=== PATIENT | male | born 1975 | race Caucasian/White ===

== ENCOUNTER 2020-07-10 15:19 | Outpatient (REF) | payer OTHER, SELFPAY | END 2020-07-10 15:20 | disposition home or self-care (01) | LOC: HO.LAB 15:19 | PROVIDERS: PCP Nurse Practitioner; Visit Provider Internal Medicine | DX: Z20.828 Contact with and (suspected) exposure to other viral communicable diseases (principal) | CPT/HCPCS: C9803; U0003 ==

== ENCOUNTER 2022-05-04 15:04 | Emergency (ER) | payer OTHER, SELFPAY ==
--- NOTE | ~2022-05-04 | XR_ITS ---
EXAMINATION: XR CHEST CLINICAL INFORMATION: Chest pain COMPARISON: None TECHNIQUE: Frontal view of the chest was obtained. FINDINGS: Minimal linear subsegmental atelectasis in the left lower lung. No airspace consolidation, pleural effusion, or pneumothorax. Mild tortuosity descending thoracic aorta. Otherwise, normal cardiomediastinal silhouette. No evidence of pulmonary edema. No acute osseous injury. XR/XR chest 1V IMPRESSION: No acute pulmonary process.
--- NOTE | 2022-05-04 15:29 | ECG_ITS ---
Test Reason : CP Blood Pressure : / mmHG Vent. Rate : 061 BPM Atrial Rate : 061 BPM P-R Int : 196 ms QRS Dur : 088 ms QT Int : 404 ms P-R-T Axes : 013 -03 019 degrees QTc Int : 406 ms Normal sinus rhythm Minimal voltage criteria for LVH, may be normal variant ( [place] product ) ST & T wave abnormality, consider lateral ischemia Abnormal ECG No previous ECGs available Referred By: Generic ED Physician Electronically Signed By:JUNO CHRISTIAN
[2022-05-04 15:49] VITALS: BP 121/86; PULSE 57; RESP 18; TEMP 36.5; O2SAT 96; BMI 37.1
[2022-05-04 15:54] LABS: MANUAL DIFF FLAG NO
[2022-05-04 15:56] LABS: Basophils Percent Auto 0.4 % (0-2); Eosinophils Absolute Auto 0.4 X10*3/uL (0.0-0.4); Eosinophils Percent Auto 5.1 % (0-4); Hematocrit 41.4 % (42.0-52.0); Hemoglobin 14.2 g/dl (14.0-18.0); Imm Gran Abs Auto 0.02 X10*3/uL (0.00-0.03); Imm Gran Pct Auto 0.3 % (0.0-0.4); Lymphocytes Absolute Auto 1.9 X10*3/uL (1.2-4.9); Lymphocytes Percent Auto 24.7 % (20-40); Mean Corpuscular HGB Conc 34.3 g/dl (31.0-36.0); Mean Corpuscular Hemoglobin 28.7 pg (27.0-33.0); Mean Corpuscular Volume 83.6 fL (80.0-98.0); Monocytes Absolute Auto 0.6 X10*3/uL (0.1-1.2); Monocytes Percent Auto 7.8 % (2-11); Neutrophils Absolute Auto 4.9 x10*3/uL (2.0-8.3); Neutrophils Percent Auto 61.7 % (45-73); Platelet Count 216 X10*3/uL (160-400); Red Blood Count 4.95 X10*6/uL (4.60-5.80); White Blood Count 7.9 X10*3/uL (4.8-10.8)
[2022-05-04 16:11] LABS: Anion Gap 16 (12-20); Blood Urea Nitrogen 11 mg/dL (9-16); Carbon Dioxide 27 mmol/L (22-29); Chloride 101 mmol/L (96-108); Estimated Glomerular Filt Rate > 60; Glucose Random 90 mg/dL (60-115); Potassium 3.5 mmol/L (3.3-5.1); Sodium 140 mmol/L (135-145)
[2022-05-04 16:19] LABS: Troponin-I High Sensitivity 3.6 ng/L (<3.5-35.0)
== END 2022-05-04 21:34 | disposition left against medical advice (07) ==
PROVIDERS: Emergency Provider Emergency Medicine; PCP Internal Medicine
DX: R07.89 Other chest pain (principal); Z79.899 Other long term (current) drug therapy
CPT/HCPCS: 36415; 71045; 80048; 84484; 85025; 93005; 99283

== ENCOUNTER 2022-05-06 15:38 | Emergency (ER) | payer OTHER, SELFPAY ==
--- NOTE | ~2022-05-06 | XR_ITS ---
EXAMINATION: XR CHEST CLINICAL INFORMATION: Chest pain COMPARISON: Previous chest x-ray 05/04/2022 TECHNIQUE: Frontal view of the chest was obtained. FINDINGS: No significant abnormality is noted involving the heart, lungs, mediastinum, bony thorax or soft tissues. XR/XR chest 1V IMPRESSION: Unremarkable examination.
[2022-05-06 16:05] VITALS: BP 131/85; PULSE 69; RESP 18; TEMP 36.9; O2SAT 98; BMI 43.5
--- NOTE | 2022-05-06 16:07 | ECG_ITS ---
Test Reason : CHEST PAIN Blood Pressure : / mmHG Vent. Rate : 070 BPM Atrial Rate : 070 BPM P-R Int : 206 ms QRS Dur : 088 ms QT Int : 394 ms P-R-T Axes : 036 000 173 degrees QTc Int : 425 ms Normal sinus rhythm Minimal voltage criteria for LVH, may be normal variant ( [place] product ) ST & T wave abnormality, consider lateral ischemia Abnormal ECG When compared with ECG of 04-MAY-2022 15:38, No significant change was found Referred By: Generic ED Physician Electronically Signed By:JUNO CHRISTIAN
[2022-05-06 16:25] LABS: MANUAL DIFF FLAG NO
[2022-05-06 16:28] LABS: Basophils Percent Auto 0.5 % (0-2); Eosinophils Absolute Auto 0.4 X10*3/uL (0.0-0.4); Eosinophils Percent Auto 5.9 % (0-4); Hematocrit 39.9 % (42.0-52.0); Hemoglobin 13.6 g/dl (14.0-18.0); Imm Gran Abs Auto 0.03 X10*3/uL (0.00-0.03); Imm Gran Pct Auto 0.5 % (0.0-0.4); Lymphocytes Absolute Auto 1.7 X10*3/uL (1.2-4.9); Lymphocytes Percent Auto 27.3 % (20-40); Mean Corpuscular HGB Conc 34.1 g/dl (31.0-36.0); Mean Corpuscular Hemoglobin 28.5 pg (27.0-33.0); Mean Corpuscular Volume 83.6 fL (80.0-98.0); Mean Platelet Volume 10.8 fL (9.4-12.4); Monocytes Absolute Auto 0.4 X10*3/uL (0.1-1.2); Monocytes Percent Auto 6.8 % (2-11); Neutrophils Absolute Auto 3.7 x10*3/uL (2.0-8.3); Platelet Count 205 X10*3/uL (160-400); Red Blood Count 4.77 X10*6/uL (4.60-5.80); White Blood Count 6.2 X10*3/uL (4.8-10.8)
[2022-05-06 16:42] LABS: Anion Gap 16 (12-20); Blood Urea Nitrogen 11 mg/dL (9-16); Calcium 8.8 mg/dL (8.4-10.2); Carbon Dioxide 25 mmol/L (22-29); Chloride 100 mmol/L (96-108); Creatinine Clr Calc Pharmacy 137.2; Estimated Glomerular Filt Rate > 60; Glucose Random 138 mg/dL (60-115); Potassium 3.5 mmol/L (3.3-5.1); Sodium 137 mmol/L (135-145)
[2022-05-06 17:36] LABS: Troponin-I High Sensitivity < 3.5 ng/L (<3.5-35.0)
[2022-05-06 20:08] LABS: COVID-19 Test Negative (Negative)
[2022-05-06 22:22] VITALS: BP 142/85; PULSE 54; RESP 18; TEMP 36.8; O2SAT 94
--- NOTE | 2022-05-07 00:20 | ED_ITS ---
HPI - Chest Pain General Chief Complaint: Chest Pain Stated Complaint: sent down by primary for ab ekg? Time Seen by Provider: 05/06/22 16:09 Source: patient and family () Mode of arrival: ambulatory Limitations: no limitations History of Present Illness HPI narrative: 46-year-old male sent by his PCP for concern of abnormal EKG and chest pain. Patient been complaining of chest pain for 1 week, pain is on and off for 1 week, localized to the epigastric and the midchest feel like burning sensation radiate to the back, pain mostly aggravated by food, exertion does not affect the pain, no alleviating factors, patient with history of hypertension, nonsmoker, physical activity at work every day, patient was evaluated by fiberglass autobody repairer few months ago and had a negative stress test as reported by the patient. Patient was seen by his PCP today and there is a concern of abnormal EKG. Related Data Previous Rx's Medication Instructions Recorded omeprazole 40 mg capsule,delayed 40 mg PO DAILY #30 caps 05/07/22 release Allergies Allergy/AdvReac Type Severity Reaction Status Date / Time No Known Allergies Allergy Unverified 04/26/20 18:56 Review of Systems Review of Systems: All other systems are reviewed and are negative Constitutional: Reports as per HPI and Reports no additional constitutional complaints Eyes: Reports as per HPI and Reports no additional eye complaints Reports system reviewed and no additional complaints, except as documented Cardiovascular: Reports as per HPI and Reports no additional cardiovascular complaints Respiratory: Reports as per HPI and Reports no additional respiratory complaints Gastrointestinal: Reports as per HPI and Reports no additional gastrointestinal complaints Genitourinary: Reports no additional female genitourinary complaints Musculoskeletal: Reports no additional musculoskeletal complaints Skin/Breast: Reports system reviewed and no additional complaints, except as docu Psychiatric: Reports no additional psychiatric complaints Endocrine: Reports no additional endocrine complaints Hematologic/Lymphatic: Reports no additional hematologic/lymphatic complaints Allergic/Immunologic: Reports no additional allergic/immunologic complaints Reports system reviewed and no additional complaints, except as documented and Reports Abnormal speech present [facility] Social History Social History Advance Directives: No Advance Directives Information Provided: No Physical Exam Vital Signs: Vital Signs: Last Vital Signs Temp 98.3 F 05/06/22 22:22 Pulse 54 05/06/22 22:22 Resp 18 05/06/22 22:22 BP 142/85 H 05/06/22 22:22 Pulse Ox 94 05/06/22 22:22 O2 Del Method 05/06/22 22:22 BMI result Body Mass Index 43.5 Vital signs have been reviewed as appeared to be correct. Blood pressure normal. Heart rate normal. Respiration rate normal. Temperature normal. Oxygen saturation normal. Appearance: Alert. Oriented X3. No acute distress. Head: Normal external exam. Normocephalic. Atraumatic. No Crowe signs noted. No raccoon eyes noted Eyes: PERRLA. EOMI. Conjunctiva and sclera normal. Eyelids normal. ENT: TM's Normal. Pharynx normal. Uvula midline. Moist mucous membranes. No trismus noted. No drooling noted. No muffled voice noted. Neck: Normal inspection. Neck supple. FROM. No adenopathy. Thyroid Normal. No meningeal signs. No neck mass noted. CVS: Normal heart rate and rhythm. Heart sound normal. No murmurs noted. Pulses normal throughout. Respiratory: No respiratory distress. Painless inspiration. Breath sounds normal. No wheezes/rales/rhonchi noted. Chest nontender. No accessory muscle usage noted or decreased air movement noted. Abdomen: Soft and nontender. Bowel sounds normal in all 4 quadrants. No distention noted. No organomegaly noted. No visible injury noted. Back: No CVA tenderness. Full range of motion noted. Skin: Skin warm and dry. Normal skin color. Normal skin turgor. No rashes/lesions/lacerations noted. Extremities: No lower extremity edema. Extremities exhibit normal range of motion. Extremities nontender. Neuro: Oriented X 3. Cranial nerve exam: II-XII are grossly intact No motor deficit. No sensory deficit. Reflexes normal. Course Course Course Narrative: 46-year-old male HEART SCORE is 2 with low risk for coronary artery disease specially patient had a recent stress test done 6 months ago and was evaluated by fiberglass autobody repairer with negative workup, history and physical exam suggesting more or less esophegitis versus gastritis. 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 Result diagrams: 05/06/22 16:20 05/06/22 16:20 Labs: Lab Results 05/06/22 05/06/22 05/06/22 Range/Units 16:20 16:20 16:20 WBC 6.2 (4.8-10.8) X10*3/uL RBC 4.77 (4.60-5.80) X10*6/uL Hgb 13.6 L (14.0-18.0) g/dl Hct 39.9 L (42.0-52.0) % MCV 83.6 (80.0-98.0) fL MCH 28.5 (27.0-33.0) pg MCHC 34.1 (31.0-36.0) g/dl RDW 13.0 (11.0-16.0) % Plt Count 205 (160-400) X10*3/uL MPV 10.8 (9.4-12.4) fL Immature Gran % (Auto) 0.5 H (0.0-0.4) % Neut % (Auto) 59.0 (45-73) % Lymph % (Auto) 27.3 (20-40) % Mcdonough % (Auto) 6.8 (2-11) % Eos % (Auto) 5.9 H (0-4) % Baso % (Auto) 0.5 (0-2) % Lymph # (Auto) 1.7 (1.2-4.9) X10*3/uL Mcdonough # (Auto) 0.4 (0.1-1.2) X10*3/uL Eos # (Auto) 0.4 (0.0-0.4) X10*3/uL Baso # (Auto) 0.0 (0.0-0.2) X10*3/uL Abs Immat Gran (auto) 0.03 (0.00-0.03) X10*3/uL Absolute Neuts (auto) 3.7 (2.0-8.3) x10*3/uL Absolute Nucleated RBC 0.000 (0.0-0.012) X10*3/uL Nucleated RBC % (auto) 0.0 (0.0-0.2) /100WBC Sodium 137 (135-145) mmol/L Potassium 3.5 (3.3-5.1) mmol/L Chloride 100 (96-108) mmol/L Carbon Dioxide 25 (22-29) mmol/L Anion Gap 16 (12-20) BUN 11 (9-16) mg/dL Creatinine 0.83 (0.5-1.4) mg/dL Estim Creat Clear Calc 137.2 Estimated GFR > 60 Random Glucose 138 H D (60-115) mg/dL Calcium 8.8 (8.4-10.2) mg/dL Troponin I High Sens (<3.5-35.0) ng/L COVID-19 (BILLY) Negative (Negative) COVID-19 Clin Com See Note 05/06/22 Range/Units 16:20 WBC (4.8-10.8) X10*3/uL RBC (4.60-5.80) X10*6/uL Hgb (14.0-18.0) g/dl Hct (42.0-52.0) % MCV (80.0-98.0) fL MCH (27.0-33.0) pg MCHC (31.0-36.0) g/dl RDW (11.0-16.0) % Plt Count (160-400) X10*3/uL MPV (9.4-12.4) fL Immature Gran % (Auto) (0.0-0.4) % Neut % (Auto) (45-73) % Lymph % (Auto) (20-40) % Mcdonough % (Auto) (2-11) % Eos % (Auto) (0-4) % Baso % (Auto) (0-2) % Lymph # (Auto) (1.2-4.9) X10*3/uL Mcdonough # (Auto) (0.1-1.2) X10*3/uL Eos # (Auto) (0.0-0.4) X10*3/uL Baso # (Auto) (0.0-0.2) X10*3/uL Abs Immat Gran (auto) (0.00-0.03) X10*3/uL Absolute Neuts (auto) (2.0-8.3) x10*3/uL Absolute Nucleated RBC (0.0-0.012) X10*3/uL Nucleated RBC % (auto) (0.0-0.2) /100WBC Sodium (135-145) mmol/L Potassium (3.3-5.1) mmol/L Chloride (96-108) mmol/L Carbon Dioxide (22-29) mmol/L Anion Gap (12-20) BUN (9-16) mg/dL Creatinine (0.5-1.4) mg/dL Estim Creat Clear Calc Estimated GFR Random Glucose (60-115) mg/dL Calcium (8.4-10.2) mg/dL Troponin I High Sens < 3.5 (<3.5-35.0) ng/L COVID-19 (BILLY) (Negative) COVID-19 Clin Com Imaging Data Chest x-ray: Attestation: I personally reviewed and interpreted this imaging study as follows: Radiologist's impression: Bilateral renal stones. No hydronephrosis or ureteral dilatation or ureteral stone. IUD in the uterus in satisfactory position. Postsurgical changes to the distal colon or upper rectum. No evidence of diverticulitis. ECG Data ECG #1: Attestation: I personally reviewed and interpreted this ECG as follows: Interpretation: Normal sinus rhythm at 70 beats per minute, LVH, diffuse T-wave inversion in V4 to V6. Unchanged from old EKG. Discharge Plan Discharge Clinical Impression: Chest pain Patient Disposition: Home, Self-Care Instructions: Chest Pain (ED) Prescriptions: New omeprazole 40 mg capsule,delayed release(DR/EC) 40 mg PO DAILY Qty: 30 0RF Referrals: Ryne Rodríguez MD [Primary Care Provider] - Michelle Lewis MD [Physician] - Erasmo Rivera MD [Physician] -
[2022-05-07 00:33] VITALS: BP 138/83; PULSE 58; RESP 19; O2SAT 97
--- NOTE | 2022-05-07 01:15 | PC.NURSE ---
Pt a&o, no sob or chest pain. Pt denies any distress. Reviewed discharge instruction. Pt verbalized understanding.
== END 2022-05-07 01:16 | disposition home or self-care (01) ==
PROVIDERS: Emergency Provider Emergency Medicine; PCP Internal Medicine
DX: R07.89 Other chest pain (principal); Z20.822 Contact with and (suspected) exposure to COVID-19; Z79.899 Other long term (current) drug therapy
CPT/HCPCS: 36415; 71045; 80048; 84484; 85025; 87635; 93005; 99283; 99284

== ENCOUNTER → 2023-03-31 15:31 | Outpatient (BNVA) | payer OTHER, SELFPAY | PROVIDERS: Visit Provider Physician Assistant Surgical ==

== ENCOUNTER 2023-05-06 14:50 | Outpatient (AMB) | payer OTHER, SELFPAY ==
--- NOTE | 2023-05-06 14:56 | MHC.OFFVISWM ---
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 His goal is to improve his health and obesity related issues including sleep apnea and hypertension.? He reports first being concerned about his weight in his 20 since started gaining weight after college.? He has tried multiple methods of weight loss including fad diets and portion control without permanent results. 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 The patient believes that this is the heaviest of his adult life at 244.2 lb, a year ago when he had atypical chest pain that may have been secondary to GERD, he was evaluated in the emergency room and found to be 270 lb. The patient reports worsening GERD over the past 2 years that he has been self medicating with Tums/OTC medications. He denies dysphagia, odynophagia, hematemesis. He has never had an upper endoscopy. PMH: PAUL/CPAP (complaint but it doesn't see to be working re: sleepines & restorative sleep) HTN PSH: denied He wakes at:???0500? bed at: 10-11pm & has difficulty falling asleep/stayig asleep Breakfast: 0530, coffee with cream & sugar, bagel Snack t work around 0930: donut & coffee with cream & sugar Lunch: Beans & rice, some meat, few vegs Dinner: beans, rice, pasta, meat, few vegs After dinner: sweets, sarah cream, cake Other snacks: Chips, sweets Liquids: Soda, occasionally juice Alcohol intake: rare? nicotine: denied??? marijuana:??denied? drugs:?denied??? caffeine: 3-4 servings/day Exercise: none Colonoscopy: past due at 45y YOSSI: 0 ESS: 20 GERD: 13 QOL: 113 The patient is advised that vitamin or protein supplement samples maybe provided by Callie Storm RD to facilitate care options. [facility] Surgical History History of lateral meniscus repair of right knee Review of Systems Const All systems reviewed & are unremarkable except as noted in HPI and below Reports as per HPI Physical Exam Vital Signs: Last Vital Signs Temp 97.3 F 05/06/23 14:57 Pulse 83 05/06/23 14:57 BP 141/84 H 05/06/23 14:57 Pulse Ox 95 05/06/23 14:57 Oxygen Delivery Method Room Air 05/06/23 14:57 BMI result Body Mass Index 40.5 The patient is non-toxic & in good spirits NC/AT, PERRLA, EOMI Mood, affect & judgment all appear appropriate Sclera anicteric conjunctiva pink and moist Oropharynx is clear with no aphthous ulcers, Mallampati class 4, mucous membranes moist Neck is plethoric but supple with no masses, adenopathy or bruits Thyroid is nontender and free of dominant masses Heart is regular, normal S1-S2 no rubs or murmurs Lungs are clear and equal anteriorly with no audible wheezing, rubs or dullness to percussion Abdomen is obese with no demonstrable hernias. No HSM, rebound, rigidity, guarding, masses or bruits are present. Rectal exam is deferred Skin has good turgor and is free of rashes Extremities free of cyanosis clubbing edema Assessment & Plan Assessment & Plan (1) BMI 40.0-44.9, adult: Code(s): Z68.41 - Body mass index [BMI] 40.0-44.9, adult (2) HTN (hypertension): Code(s): I10 - Essential (primary) hypertension (3) PAUL on CPAP: Code(s): G47.33 - Obstructive sleep apnea (adult) (pediatric) (4) Non-restorative sleep: Code(s): G47.8 - Other sleep disorders (5) Knee pain, right: Code(s): M25.561 - Pain in right knee (6) Lumbar back pain: Code(s): M54.50 - Low back pain, unspecified Plan Via product safety tester, we had a discussion regarding diet, physiology and normal anatomy and options including medical management, and bariatric surgery options including laparoscopic sleeve gastrectomy or laparoscopic gastric bypass. The importance of following a healthy diet that is high in protein and low in carbohydrates and fats for long-term success was reviewed with the patient and he seemed understand and would like to proceed. I spent 65 minutes answering questions/counseling the patient regarding options including medical weight loss and bariatric surgery. We briefly reviewed the inherent risks to bariatric surgery which include weight regain, bleeding, infection and DVT/PE that can be fatal. The patient seems to understand the importance of being engaged in his health and would like to proceed. See orders. Patient will follow-up with me for a 45 minute visit with interpretive services at the end of May. Preop Bariatric Plan 1.?? Nutritional counseling:?Be sure to careful read the number of scoops per shake if you are using powdered mix.? Substitute Celebrate Rebuild Protein Shakes & Bars for Zone Perfect bar in the printout. Start with? Celebrate ReBuild Protein shakes First shake (1 scoops in 8 oz unsweetened almond milk) at 7-9am Second shake, (1 scoop in 8 oz unsweetened almond milk) at Noon-2pm 1 protein bar Celebrate ReBuild bars at 3-4pm. Dinner at 4pm (10 forks of protein and 10 forks of salad/vegetables). Meal to include lean meat (beef, fish, pork, turkey, chicken), cooked vegetables or a salad with olive oil and/or fruits (berries, pears, apples, kiwi) 2.?? If you are hungry after dinner, eat another Celebrate Protein Bar 3.?? Avoid breads, potatoes, starches, rice, pasta, donuts, bagels. Sweets & desserts.? The sooner you decrease carbohydrates & excess fats, the sooner you will reach your goal. 4.?? You must closely monitor your blood pressure at daily. Stop adding sugar & creamer to you coffee After dinner snacking should be Celebrate ReBuild protein bar if needed. Try to drink 64 oz of water daily and avoid soda and juices. ?2. Each shake would be drunk slowly, like coffee in a period of 2 hours. ?3. Cut each bar in 4 pieces and eat each piece in 30 min to make each bar last 2 hours. ?4. I emphasized the importance of measuring accurately the food portion and measure it carefully when serving the food on the plate ?5. The meal portions include 10 full-size forks of meat and 10 full-size forks of salad. You should always eat the meat portion but you can skip the forks of salad/vegetables and replace with a fruit if you like. The less you do it the better weight loss will be. ?6. One full-size fork is what can be scooped on the fork without falling aside and not what can be bit with the fork. Use regular forks like those you find in a typical restaurant. ?7.? Please send me weight measurements as soon as possible and then once a week. Always include your diet and exercise plan. Alternatively come weekly at the office for weight checks and send me the measurements. ?8. Exercise counseling:? Begin by watching a stretching for beginner?s video.? Start slowly and begin to stretch your muscles.? You should do this before and after each exercise session to prevent injury.? Please use the exercise equipment at your building. Start elliptical with a resistance of 2. Increase resistance by 1 every 3 min to your most comfortable resistance with a max resistance of 8.? Reduce the resistance by 1 every 3 minutes back down to 2 and repeat cycles for 300 calories. Alternatively, start treadmill with a speed of 3.0 and incline of 0, increasing incline by 1 every 3 minutes to the highest comfortable level (max 6 for now) then decrease in the same fashion.? Repeat process to a goal of 300 calories.? Goal of 2000 calories burned or more weekly.? You may also consider use of the stationary bike.? The easiest would be to choose the fat-burn or interval training program on the machine and do this until you reach the 300 calorie goal.? Alternatively, you can manually adjust the resistance in a similar fashion as mentioned above, (resistance of 2-8 with a goal speed of 12 mph).?Tracking calories is essential. 9. Alternatively, start walking outside daily, tracking calories with a goal of 300 calories per day, daily. If [id number] is needed, you can start there, but the goal is DAILY. You can download the fausto?Refresh.io?which can track your time, distance and calories while walking outside.? You press start in the fausto when you start and then stop when you are finished. ? 10.? It is important to avoid and for at least 18 months postoperatively and it has been discussed at the information session 11. Please get labs, EKG and chest X-Ray within 1 week. 12. Discussed and answered all questions regarding?obtained consent to participate in the [facility]?Registry. 13. Please follow the diet plan exactly, without any change.? If you do not like something about the plan or you feel hungry, you need to communicate with me so I can help you revise the plan.? You should not change the plan yourself. 14. Goal is to lose 1.5-2.0 lbs/week 15. Goal is to lose 10% of your weight before surgery, which is about 25 lbs. Ultimate weight goal: 220 lbs before surgery.? Remember that you may need to lose more weight to qualify for surgery if your abdominal ultrasound shows your liver or spleen are enlarged or if your upper GI shows a hiatal hernia. IF YOU EXPERIENCE PAIN, SEVERE SHORTNESS OF BREATH, DIZZINESS OR LIGHTHEADEDNESS, OR SIGNIFICANT CONSTIPATION OR DIARRHEA, (DIARRRHEA CAN OCCUR FROM SOME ARTIFICIAL SWEETENERS) PLEASE NOTIFY THE OFFICE! If you have diabetes, you will need to follow your blood sugars at least twice a day (morning & evening, or as needed if you are shaky/sweaty or feel hypoglycemic).? Please discuss with Dr. Cruz.? Text Dr. Cruz at [phone] If you have hypertension/high blood pressure, you will need to monitor your blood pressure regarding adjusting medications.? Please discuss with Dr. Cruz.? We encourage patients to track calories burned while exercising as this is a more proven method verses ?steps? or ?miles walked? apps.? Patients who have dedicated exercise time at regular intervals throughout the week have greater weight loss then patients who hope that being active at work or through their day will result in weight loss.? Your body has adapted to your current life & you need to add regular exercise, just like you added a healthier diet for your health goals. Resistance training (weight lifting) is helpful to reach your goal, strengthen your bones or if your weight loss has stalled (reached a plateau) by both burning calories & adding muscle, which increases your metabolism.? Chest, back & thigh muscles can be exercised at home or at a gym.? Please discuss your goals with Dr. Cruz or a qualified parent trainer at your local gym. YouTube options: ?Sit to Be Fit, Daily Burn, Patricia, Walk away the pounds, [employer] Websites: Sit and Be Fit? https://www.sitandbefit.org/ Go For Life https://mu8tfsg.anne.nih.gov/ Orders: Orders IRON PROFILE Today G47.33 - Obstructive sleep apnea (adult) (pediatric), G47.8 - Other sleep disorders, I10 - Essential (primary) hypertension, M25.561 - Pain in right knee, M54.50 - Low back pain, unspecified, Z68.41 - Body mass index [BMI] 40.0-44.9, adult Complete Blood Count Auto Diff Today G47.33 - Obstructive sleep apnea (adult) (pediatric), G47.8 - Other sleep disorders, I10 - Essential (primary) hypertension, M25.561 - Pain in right knee, M54.50 - Low back pain, unspecified, Z68.41 - Body mass index [BMI] 40.0-44.9, adult Vitamin B12 and Folate Today G47.33 - Obstructive sleep apnea (adult) (pediatric), G47.8 - Other sleep disorders, I10 - Essential (primary) hypertension, M25.561 - Pain in right knee, M54.50 - Low back pain, unspecified, Z68.41 - Body mass index [BMI] 40.0-44.9, adult Zinc Today G47.33 - Obstructive sleep apnea (adult) (pediatric), G47.8 - Other sleep disorders, I10 - Essential (primary) hypertension, M25.561 - Pain in right knee, M54.50 - Low back pain, unspecified, Z68.41 - Body mass index [BMI] 40.0-44.9, adult Comprehensive Met. Panel Today G47.33 - Obstructive sleep apnea (adult) (pediatric), G47.8 - Other sleep disorders, I10 - Essential (primary) hypertension, M25.561 - Pain in right knee, M54.50 - Low back pain, unspecified, Z68.41 - Body mass index [BMI] 40.0-44.9, adult Vitamin B1 Today G47.33 - Obstructive sleep apnea (adult) (pediatric), G47.8 - Other sleep disorders, I10 - Essential (primary) hypertension, M25.561 - Pain in right knee, M54.50 - Low back pain, unspecified, Z68.41 - Body mass index [BMI] 40.0-44.9, adult Ferritin Today G47.33 - Obstructive sleep apnea (adult) (pediatric), G47.8 - Other sleep disorders, I10 - Essential (primary) hypertension, M25.561 - Pain in right knee, M54.50 - Low back pain, unspecified, Z68.41 - Body mass index [BMI] 40.0-44.9, adult H Pylori Breath Test Today G47.33 - Obstructive sleep apnea (adult) (pediatric), G47.8 - Other sleep disorders, I10 - Essential (primary) hypertension, M25.561 - Pain in right knee, M54.50 - Low back pain, unspecified, Z68.41 - Body mass index [BMI] 40.0-44.9, adult Vitamin D 25-OH Total Today G47.33 - Obstructive sleep apnea (adult) (pediatric), G47.8 - Other sleep disorders, I10 - Essential (primary) hypertension, M25.561 - Pain in right knee, M54.50 - Low back pain, unspecified, Z68.41 - Body mass index [BMI] 40.0-44.9, adult Hemoglobin A1c Today G47.33 - Obstructive sleep apnea (adult) (pediatric), G47.8 - Other sleep disorders, I10 - Essential (primary) hypertension, M25.561 - Pain in right knee, M54.50 - Low back pain, unspecified, Z68.41 - Body mass index [BMI] 40.0-44.9, adult XR chest 2V Today G47.33 - Obstructive sleep apnea (adult) (pediatric), G47.8 - Other sleep disorders, I10 - Essential (primary) hypertension, M25.561 - Pain in right knee, M54.50 - Low back pain, unspecified, Z68.41 - Body mass index [BMI] 40.0-44.9, adult ECG 12 lead EKG Today G47.33 - Obstructive sleep apnea (adult) (pediatric), G47.8 - Other sleep disorders, I10 - Essential (primary) hypertension, M25.561 - Pain in right knee, M54.50 - Low back pain, unspecified, Z68.41 - Body mass index [BMI] 40.0-44.9, adult FL upper GI w air Today G47.33 - Obstructive sleep apnea (adult) (pediatric), G47.8 - Other sleep disorders, I10 - Essential (primary) hypertension, M25.561 - Pain in right knee, M54.50 - Low back pain, unspecified, Z68.41 - Body mass index [BMI] 40.0-44.9, adult Insulin Today G47.33 - Obstructive sleep apnea (adult) (pediatric), G47.8 - Other sleep disorders, I10 - Essential (primary) hypertension, M25.561 - Pain in right knee, M54.50 - Low back pain, unspecified, Z68.41 - Body mass index [BMI] 40.0-44.9, adult Lipid Panel Today G47.33 - Obstructive sleep apnea (adult) (pediatric), G47.8 - Other sleep disorders, I10 - Essential (primary) hypertension, M25.561 - Pain in right knee, M54.50 - Low back pain, unspecified, Z68.41 - Body mass index [BMI] 40.0-44.9, adult Vitamin A Today G47.33 - Obstructive sleep apnea (adult) (pediatric), G47.8 - Other sleep disorders, I10 - Essential (primary) hypertension, M25.561 - Pain in right knee, M54.50 - Low back pain, unspecified, Z68.41 - Body mass index [BMI] 40.0-44.9, adult C Reactive Protein Today G47.33 - Obstructive sleep apnea (adult) (pediatric), G47.8 - Other sleep disorders, I10 - Essential (primary) hypertension, M25.561 - Pain in right knee, M54.50 - Low back pain, unspecified, Z68.41 - Body mass index [BMI] 40.0-44.9, adult PTHI Today G47.33 - Obstructive sleep apnea (adult) (pediatric), G47.8 - Other sleep disorders, I10 - Essential (primary) hypertension, M25.561 - Pain in right knee, M54.50 - Low back pain, unspecified, Z68.41 - Body mass index [BMI] 40.0-44.9, adult TSH reflex Free T4 Today G47.33 - Obstructive sleep apnea (adult) (pediatric), G47.8 - Other sleep disorders, I10 - Essential (primary) hypertension, M25.561 - Pain in right knee, M54.50 - Low back pain, unspecified, Z68.41 - Body mass index [BMI] 40.0-44.9, adult US abdomen comp w elastography Today G47.33 - Obstructive sleep apnea (adult) (pediatric), G47.8 - Other sleep disorders, I10 - Essential (primary) hypertension, M25.561 - Pain in right knee, M54.50 - Low back pain, unspecified, Z68.41 - Body mass index [BMI] 40.0-44.9, adult Referrals Behavioral Health Referral G47.33 - Obstructive sleep apnea (adult) (pediatric), G47.8 - Other sleep disorders, I10 - Essential (primary) hypertension, M25.561 - Pain in right knee, M54.50 - Low back pain, unspecified, Z68.41 - Body mass index [BMI] 40.0-44.9, adult Pulmonary Medicine Referral G47.33 - Obstructive sleep apnea (adult) (pediatric), G47.8 - Other sleep disorders, I10 - Essential (primary) hypertension, Z68.41 - Body mass index [BMI] 40.0-44.9, adult Nutrition/Dietitian Referral G47.33 - Obstructive sleep apnea (adult) (pediatric), G47.8 - Other sleep disorders, I10 - Essential (primary) hypertension, M25.561 - Pain in right knee, M54.50 - Low back pain, unspecified, Z68.41 - Body mass index [BMI] 40.0-44.9, adult Coding Level of Care Code New Pt Level 5 (68043) Diagnoses BMI 40.0-44.9, adult Z68.41 HTN (hypertension) I10 PAUL on CPAP G47.33 Non-restorative sleep G47.8 Knee pain, right M25.561 Lumbar back pain M54.50
[2023-05-06 14:57] VITALS: BP 141/84; PULSE 83; TEMP 36.3; O2SAT 95; BMI 40.5
== END 2023-05-06 16:27 | disposition home or self-care (01) ==
PROVIDERS: Visit Provider Surgery
DX: E66.01 Morbid (severe) obesity due to excess calories (principal); Z68.41 Body mass index [BMI] 40.0-44.9, adult; G47.33 Obstructive sleep apnea (adult) (pediatric)
CPT/HCPCS: 99205

== ENCOUNTER → 2023-05-06 14:50 | Outpatient (BNVA) | payer OTHER, SELFPAY | PROVIDERS: Visit Provider Surgery ==

== ENCOUNTER 2023-05-19 09:18 | Outpatient (REF) | payer OTHER, SELFPAY ==
--- NOTE | ~2023-05-19 | US_ITS ---
EXAMINATION: US COMPLETE ABDOMEN WITH LIVER ELASTOGRAPHY CLINICAL INFORMATION: Morbid obesity. COMPARISON: None available. TECHNIQUE: Real-time imaging of the abdominal viscera. Noninvasive ultrasound liver fibrosis assessment is performed using Antoinette ElastPQ point quantification shear wave elastography (2D-SWE) with a C5-2 MHz transducer. Multiple elastography samples are obtained. FINDINGS: PANCREAS: Normal. The visualized pancreatic head and body are normal in appearance. The remainder of the pancreas is obscured from visualization by the overlying bowel gas. ABDOMINAL AORTA: The proximal, middle, and distal aortic segments are normal in caliber. INFERIOR VENA CAVA: Visualized portions are normal. LIVER: There is diffuse increased echogenicity consistent with fatty infiltration/hepatocellular disease. No focal mass or intrahepatic bile duct dilatation. The right lobe measures 17.5 cm in length. The left lobe measures 11.0 cm in length. Portal flow is hepatopedal. Shear wave liver elastography median stiffness is 1.37 m/s (reference: normal median stiffness is 1.3 m/s or less). IQR/median stiffness to assess sampling precision is 0.07 (reference: good quality data set is IQR/median stiffness of 0.15 or less). GALLBLADDER: Cholelithiasis is present without evidence of acute cholecystitis. Gallbladder wall measures 2 mm in diameter. No pericholecystic fluid is identified. No fluid within the gallbladder wall is seen. The largest calculus measures approximately 8 x 5 x 7 mm in size. No tenderness to palpation was elicited. COMMON BILE DUCT: Normal in caliber measuring 0.4 cm in diameter. RIGHT KIDNEY: Normal. No hydronephrosis. No renal calculi or focal parenchymal lesions. The kidney measures 12.7 cm in maximum dimension. LEFT KIDNEY: Normal. The kidney measures 13.2 cm in maximum dimension. SPLEEN: Normal. The spleen measures 8.6 cm in maximum dimension. FREE FLUID: None. US/US abdomen comp w elastography IMPRESSION: 1. Cholelithiasis without evidence of acute cholecystitis. 2. Diffusely increased echogenicity of the liver consistent with fatty infiltration/hepatocellular disease. 3. Liver elastography: In the absence of other known clinical signs, measurements rule out compensated advanced chronic liver disease. If there are known clinical signs, further testing may be needed for confirmation. REFERENCE: Society of Radiologists in Ultrasound Liver Stiffness Thresholds (2020): LIVER STIFFNESS THRESHOLDS: *Liver Stiffness equal or less than 1.3 m/s: High probability of being normal. *Liver Stiffness less than 1.7 m/s: In the absence of other known clinical signs, rules out compensated advanced chronic liver disease. *Liver Stiffness 1.7-2.1 m/s: Suggestive of compensated advanced chronic liver disease but need further test for confirmation. *Liver Stiffness over 2.1 m/s: Rules in compensated advanced chronic liver disease. *Liver Stiffness over 2.4 m/s: Suggestive of clinically significant portal hypertension. QUALITY OF DATA SET: *IQR/Median value equal or less than 0.15 implies a quality data set. *IQR/Median value over 0.15 implies a poor quality data set. SIGNIFICANT CHANGE FROM PRIOR EXAM: Significant change if liver stiffness measurement is 10% or greater from prior exam. OTHER CONSIDERATIONS: The stage of liver fibrosis may be overestimated in the setting of acute hepatitis, liver inflammation, elevated liver function tests, hepatic vascular congestion, obstructive cholestasis, non-fasting state, and infiltrative diseases such as amyloidosis and lymphoma. In some patients with NAFLD, the liver stiffness thresholds for compensated advanced chronic liver disease may be lower. In causes other than viral hepatitis and NAFLD, liver stiffness thresholds are not well established.
--- NOTE | ~2023-05-19 | XR_ITS ---
EXAMINATION: XR CHEST CLINICAL INFORMATION: Body mass index [BMI] 40.0-44.9, adult COMPARISON: April 26, 2022. TECHNIQUE: 2 views of the chest were obtained. FINDINGS: Uncoiled aorta suggesting hypertension. No other significant abnormality is noted involving the heart, lungs, mediastinum, bony thorax or soft tissues. XR/XR chest 2V IMPRESSION: No acute finding.
== END 2023-05-19 09:19 | disposition home or self-care (01) ==
LOC: HO.US 09:18
PROVIDERS: PCP Internal Medicine; Visit Provider Surgery
DX: I10 Essential (primary) hypertension (principal); G47.33 Obstructive sleep apnea (adult) (pediatric); G47.8 Other sleep disorders; M25.561 Pain in right knee; M54.50 Low back pain, unspecified
CPT/HCPCS: 71046; 76705; 76981

== ENCOUNTER 2023-06-11 13:12 | Outpatient (AMB) | payer OTHER, SELFPAY ==
--- NOTE | 2023-06-11 13:26 | MHC.WMTHER ---
Intake Intake Visit Reasons: (OV) BH Intake Allergies No Known Allergies Allergy (Unverified 05/06/23 15:23) [facility] Surgical History History of lateral meniscus repair of right knee Behavioral Health Assessment Weight Management Therapy Therapy Notes Details PT is a 47 y/0 male who presents for BH assessment as part of surgical Weight loss program. Pt reports his interest in bariatric sugery to improve overall health, he's looking for a long-term change in life style. Presenting Concerns Referral Source P Provider. Reason for referral Completion of behavioral health assessment as part of process for weight-loss surgery. Precipitating Event Sleep apnea, obesity, high blood pressure. Living Situation Current Living Situation Own At risk of losing current housing? No Satisfied with current living situation? Yes Comments Pt lives with and her 20 y/o son. Food/Weight/Diet Expectations of change Initial goal is to lose 10% of your weight before surgery, which is about 25 lbs. Ultimate weight goal: 220 lbs. before surgery. History/Relationship with food Meals are [place]ican style. Tends to drink 3-4 large cups of coffee with cream and sugar. Social History Family history and relationship 23 years ago. They share a 20 y/o son. He has a 25 year old daughter who is in [place], and has a 26 y/o daughter from previous relationship. All of his family lives in [place]. Mother alive, dad . Has 3 siblings. Parental/Familial dairy hand obligations Son who lives Developmental history and status None reported. Social support . Community support Providers. Yarsanism/Spirituality Raised as Baptism but doesn't practice. Cultural/Ethnic information [place]ani. Mainly Irish-speaking. Moved to [place] 2 years. Legal Involvement and History Current or historical involvement with the legal system? None reported. Education Highest grade completed 3 year college, didn't finish. Preferred learning style Learn by doing and Visual Currently enrolled in educational program? No Interested in further educational program? 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 ) Wants help to find employment? No Meaningful activities Cars, time alone, Service Service? No Questionnaires PHQ-9 Over the last 2 weeks, how often have you been bothered by any of the following problems? 1. Little interest or pleasure in doing things: several days 2. Feeling down, depressed, or hopeless: several days 3. Trouble falling or staying asleep, or sleeping too much: not at all 4. Feeling tired or having little energy: nearly every day 5. Poor appetite or overeating: several days 6. Feeling bad about yourself - or that you are a failure or have let yourself or your family down: several days 7. Trouble concentrating on things, such as reading the newspaper or watching television: several days 8. Moving or speaking so slowly that other people could have noticed. Or the opposite - being so fidgety or restless that you have been moving around a lot more than usual: several days 9. Thoughts that you would be better off or of hurting yourself in some way: not at all Total score: 9 Depression Screening Interpretation: Positive (mild Sx. repeat at f/up) Depression Screening Done: Yes 20654 - PHQ-9 Billing: Yes Source: Developed by Drs. Blake Hathaway, Leslie Aragon, Randy Pascal and colleagues, with an educational ilia from [employer]. Binge Eating Scale Group 1 A. I don't feel self-conscious about my wt. or body size when I'm with others. B. I feel concerned about how I look to others, but it normally does not make me fell disappointed with myself C. I do get self-conscious about my appearance and wt. which makes me feel disappointed in myself. D. I feel very self-conscious about my wt. and frequently I feel intense shame and disgust for myself. I try to avoid social contacts because of my self-consciousness. Response Group 1: C Group 2 A. I don't have any difficulty eating slowly in the proper manner. B. Although I seem to gobble down foods, I don't end up feeling stuffed because of eating to much. C. At times, I tend to eat quickly and then, I feel uncomfortably full afterwards. D. I have the habit of bolting down my food, without really chewing it. When this happens I usually feel uncomfortably stuffed because I've eaten to much. Response Group 2: C Group 3 A. I feel capable to control my eating urges when I want to. B. I feel like I have failed to control my eating more than the average person. C. I feel utterly helpless when it comes to feeling in control of my eating urges. D. Because I feel so helpless about controlling my eating I have become very desperate about trying to get control. Response Group 3: B Group 4 A. I don't have the habit of eating when I'm bored. B. I sometimes eat when I'm bored, but often I'm able to get busy and get my mind off food. C. I have a regular habit of eating when I'm bored, but occasionally, I can use some other activity to get my mind off eating. D. I have a strong habit of eating when I'm bored. Nothing seems to help me breath the habit. Response Group 4: C Group 5 A. I'm usually physically hungry when I eat something. B. Occasionally, I eat something on impulse even though I really am not hungry. C. I have the regular habit of eating foods, that I might not really enjoy, to satisfy a hungry feeling even though physically, I don't need the food. D. Although I'm not physically hungry, I get a hungry feeling in my mouth that only seems to be satisfied when I eat a food, like sandwich, that fills my mouth. Sometimes, when I eat the food to satisfy my mouth hunger, I then spit the food out so I won't gain weight. Response Group 5: B Group 6 A. I don't feel any guilt or self-hate after I overeat. B. After I overeat, occasionally I feel guilt or self-hate. C. Almost all the time I experience strong guilt or self-hate after I overeat. Response Group 6: A Group 7 A. I don't lose total control of my eating when dieting even after periods when I overeat. B. Sometimes when I eat a forbidden food on a diet, I feel like I blew it and eat even more. C. Frequently, I have the habit of saying to myself, I've blown it now, why not go all the way, when I overeat on a diet. When that happens I eat more. D. I have a regular habit of starting a strict diets for myself but I break the diets by going on an eating binge. My life seems to be either a feast or famine. Response Group 7: A Group 8 A. I rarely eat so much food that I feel uncomfortably stuffed afterwards. B. Usually about once a month, I each such a quantity of food, I end up feeling very stuffed. C. I have regular periods during the month when I eat large amounts of food, either at mealtime or at snacks. D. I eat so much food that I regularly feel quite uncomfortable after eating and sometimes a bit nauseous. Response Group 8: C Group 9 A. My level of calorie intake does not go up very high or go down very low on a regular basis. B. Sometimes after I overeat, I will try to reduce my caloric intake to almost nothing to compensate for the excess calories I've eaten. C. I have a regular habit of overeating during the night. It seems that my routine is not to be hungry in the morning but overeat in the evening. D. In my adult years, I have had week-long periods where I practically starve myself. This follows periods when I overeat. It seems I live a life of either feast or famine. Response Group 9: C Group 10 A. I usually am able to stop eating when I want to. I know when enough is enough. B. Every so often, I experience a compulsion to eat which I can't seem to control. C. Frequently, I experience strong urges to eat which I seem unable to control, but at other times I can control my eating urges. D. I feel incapable of controlling urges to eat. I have a fear of not being able to stop eating voluntarily. Response Group 10: A Group 11 A. I don't have any problem stopping eating when I feel full. B. I usually can stop eating when I feel full but occasionally overeat leaving me feeling uncomfortably stuffed. C. I have a problem stopping eating once I start and usually I feel uncomfortably stuffed after I eat a meal. D. Because I have a problem not being able to stop eating when I want, I sometimes have to induce vomiting to relieve my stuffed feeling. Response Group 11: A Group 12 A. I seem to eat just as much when I'm with others, Family social gatherings as when I'm by myself. B. Sometimes, when I'm with other persons, I don't eat as much as I want to eat because I'm self-conscious about my eating. C. Frequently, I eat only a small amount of food when others are present, because I'm very embarrassed about my eating. D. I feel so ashamed about overeating that I pick times to overeat when I know no one will see me. I feel like a closet eater. Response Group 12: B Group 13 A. I eat three meals a day with only an occasional between meal snack. B. I eat 3 meals a day, but I also normally snack between meals. C. When I am snacking heavily, I get in the habit of skipping regular meals. D. There are regular periods when I seem to be continually eating, with no planned meals. Response Group 13: B Group 14 A. I don't think much about trying to control unwanted eating urges. B. At least some of the time, I feel my thoughts are pre-occupied with trying to control my eating urges. C. I feel that frequently I spend much time thinking about how much I ate or about trying not to eat anymore. D. It seems to me that most of my waking hours are pre-occupied by thoughts about eating or not eating. I feel like I'm constantly struggling not to eat. Response Group 14: B Group 15 A. I don't think about food a great deal. B. I have strong craving for food but they last only for brief periods of time. C. I have days when I can't seem to think about anything else but food. D. Most of my days seem to be pre-occupied with thoughts about food. I feel like I live to eat. Response Group 15: A Group 16 A. I usually know whether or not I'm physically hungry. I take the right portion of food to satisfy me. B. Occasionally, I feel uncertain about knowing whether or not I'm physically hungry. A these times it's hard to know how much food I should take to satisfy me. C. Even though I might know how many calories I should eat, I don't have any idea what is a normal amount of food for me. Response Group 16: B Binge Eating Score: 16 Score less than 17 Minimal Risk Score between 18-26 Moderate Risk Score between 27-46 High Risk Assessment & Plan Assessment & Plan (1) Adjustment disorder, unspecified: Code(s): F43.20 - Adjustment disorder, unspecified Qualifiers: Adjustment disorder type: unspecified type Qualified Code(s): F43.20 - Adjustment disorder, unspecified Plan: Clearance pending as Pt needs to follow up to finish BH intake as he arrived late and we couldn't cover all the areas. PHQ-9 needs to be repeated due to scores. Next fausto: 07/15/23 at 11:30, telehealth. Coding Level of Care Code New Pt Tele Psy Diag Eval (30555) Patient Type New Diagnoses Adjustment disorder, unspecified type F43.20 Adjustment disorder type: unspecified type Time Spent (min) 45
== END 2023-06-11 14:00 | disposition home or self-care (01) ==
PROVIDERS: Visit Provider Counselor Mental Health
DX: F43.20 Adjustment disorder, unspecified (principal)
CPT/HCPCS: 90791

== ENCOUNTER → 2023-06-11 13:12 | Outpatient (BNVA) | payer OTHER, SELFPAY | PROVIDERS: Visit Provider Counselor Mental Health ==